=== PATIENT | male | born 1940 | race Caucasian/White ===

== ENCOUNTER 2017-07-26 19:54 | Inpatient (IN) | payer MEDICARE, MEDICAID ==
[2017-07-26 21:10] LABS: ALB/GLOB RATIO 0.8 (1.0-1.8); ALBUMIN 2.8 gm/dL (4.2-5.5); ALKALINE PHOSPHATASE 96 U/L (34-104); ANION GAP 11.3 (7.0-16.0); BILIRUBIN,TOTAL 0.4 mg/dL (0.3-1.0); BUN - UREA NITROGEN 36 mg/dL (7-25); CALCIUM SERUM 8.9 mg/dL (8.6-10.3); CARBON DIOXIDE 26.8 mEq/L (21.0-31.0); CHLORIDE 109 mEq/L (98-107); CREATININE - SERUM 1.6 mg/dL (0.7-1.3); GLUCOSE 96 mg/dL (70-105); POTASSIUM SERUM 5.1 mEq/L (3.5-5.1); SGOT 14 U/L (13-39); SGPT/ALT 9 U/L (7-52); SODIUM SERUM 142 mEq/L (136-145); TOTAL PROTEIN,SERUM 6.5 gm/dL (6.0-8.3)
--- NOTE | 2017-07-26 21:16 | ED Physician Chart ---
ED Chief Complaint/HPI - Patient Information Date Seen:: 07/26/17 Time Seen:: 19:40 Chief Complaint:: leg swelling and discoloration History of Present Illness:: 77 YR OLD MALE FROM ASSISTED WITH LEG BURNING PAINS AND SWELLING DISCOLORATIONS PT HEAVY SET AND ESSENTIALLY IMOBILE DENIES CP ,SOB Allergies:: Allergies Allergy/AdvReac Type Severity Reaction Status Date / Time celecoxib Allergy Verified 07/26/17 20:22 erythromycin base Allergy Verified 07/26/17 20:22 furosemide [From Lasix] Allergy Verified 07/26/17 20:22 naproxen [From Naprosyn] Allergy Verified 07/26/17 20:22 prednisone Allergy Verified 07/26/17 20:22 Sulfa (Sulfonamide Allergy Verified 07/26/17 20:22 Antibiotics) sulfacetamide Allergy Verified 07/26/17 20:22 Vitals:: Vital Signs - 8 hr 07/26/17 20:00 Temp 98.4 F HR 92 RR 18 BP 146/88 O2 Sat % 98 ED Review of Systems - Review of Systems General/Constitutional: No chills Skin: No skin lesions Head: No headache Eyes: No loss of vision ENT: No earache Neck: No neck pain Psychiatric: No homicidal ideation, No auditory hallucination, Visual hallucination Hematopoietic: No lymphadenopathy Neurological: No headache, No dizziness Family Medical History - Family Member Mother History Unknown: Yes Ethnicity: ED Labs/Radiology/EKG Results - Lab Results Results: Laboratory Tests 07/26/17 20:45 WBC 10.0 RBC 5.09 Hgb 13.0 Hct 39.3 L MCV 77.2 L MCH 25.6 L MCHC Differential 33.1 RDW 13.1 Plt Count 257 MPV 7.0 Neutrophils % 57.2 Lymphocytes % 19.6 L Monocytes % 6.8 Eosinophils % 16.0 H Basophils % 0.4 ED Assessment Prep/Irrigation:: ordered venous duplex ultraound the leg markedky swooleen ultraound could charo dosec to probe stickinh to the pts skin ED Septic Shock - . Is Septic Shock (SBP<90, OR Lactate>4 mmol\L) present?: No - <6hrs of presentation: Vital Signs: Vital Signs - 8 hr 07/26/17 20:00 Temp 98.4 F HR 92 RR 18 BP 146/88 O2 Sat % 98
[2017-07-26 21:53] LABS: EOSINOPHILE ABSOLUTE 0.1 Th/cmm (0.1-0.4)
[2017-07-26 21:54] LABS: URINE MICROSCOPIC INDICATED? YES; URINE SOURCE RANDOM
[2017-07-26 21:55] LABS: MONOCYTE ABSOLUTE 1.1 Th/cmm (0.3-1.0)
[2017-07-26 21:55] LABS: URINE BILIRUBIN NEGATIVE (NEGATIVE); URINE BLOOD LARGE (NEGATIVE); URINE GLUCOSE (UA) NEGATIVE (NEGATIVE); URINE KETONE NEGATIVE (NEGATIVE); URINE LEUKOCYTE ESTERASE SMALL (NEGATIVE); URINE NITRATE NEGATIVE (NEGATIVE); URINE PROTEIN 100 mg/dL (NEGATIVE); URINE UROBILINOGEN 0.2 E.U./dL (0.2 - 1.0)
[2017-07-26 21:58] LABS: LYMPHOCYTE ABSOLUTE 2.6 Th/cmm (1.5-3.0); NEUTROPHILE ABSOLUTE 8.7 Th/cmm (1.8-8.0)
[2017-07-26 22:00] LABS: HEMATOCRIT 35.5 % (41.0-60); HEMOGLOBIN 11.7 gm/dL (12-16); MEAN CELL VOLUME 89.2 fl (80-99); MEAN CORPUSCULAR HEMOGLOBIN 29.4 pg (27.0-31.0); RED BLOOD COUNT 3.99 Mil/cmm (3.80-5.80)
[2017-07-26 22:01] LABS: % BASOPHILS 0.3 % (0.0-2.0); % EOSINOPHILS 0.8 % (0.0-5.0); % LYMPHOCYTES 20.7 % (20.0-50.0); % MONOCYTES 8.8 % (2.0-10.0); % NEUTROPHILS 69.4 % (40.0-80.0); MEAN PLATELET VOLUME 6.7 fl; PLATELET COUNT 453 Th/cmm (150-400); RED CELL DISTRIBUTION WIDTH 16.7 % (11.5-20.0); WHITE BLOOD COUNT 11.9 Th/cmm (4.8-10.8)
[2017-07-26 22:08] LABS: URINE BACTERIA FEW /hpf (NONE SEEN); URINE CLARITY CLEAR (CLEAR); URINE COLOR YELLOW; URINE EPITHELIAL CELLS NONE SEEN /lpf (FEW); URINE RBC 25-50 /hpf (0-5)
[2017-07-26] MEDS ORDERED: Sodium Chloride 0.9% 1,000 ML IV ONE (22:55)
[2017-07-26] MEDS ORDERED: cefTRIAXone 1 GM in Sodium Chloride 0.9% 50 ML IV ONE (23:00)
[2017-07-27 02:13] VITALS: BP 127/81
[2017-07-27 06:21] LABS: % BASOPHILS 0.6 % (0.0-2.0); % EOSINOPHILS 16.7 % (0.0-5.0); % LYMPHOCYTES 22.7 % (20.0-50.0); % MONOCYTES 7.6 % (2.0-10.0); % NEUTROPHILS 52.4 % (40.0-80.0); BASOPHILE ABSOLUTE 0.1 Th/cumm (0-0.2); EOSINOPHILE ABSOLUTE 1.5 Th/cmm (0.1-0.4); HEMATOCRIT 34.2 % (41.0-60); HEMOGLOBIN 11.4 gm/dL (12-16); MEAN CORPUSCULAR HEMOGLOBIN 25.6 pg (27.0-31.0); MEAN CORPUSCULAR HGB CONC 33.2 pg (28.0-36.0); MEAN PLATELET VOLUME 7.3 fl; MONOCYTE ABSOLUTE 0.7 Th/cmm (0.3-1.0); NEUTROPHILE ABSOLUTE 4.5 Th/cmm (1.8-8.0); RED BLOOD COUNT 4.44 Mil/cmm (3.80-5.80); RED CELL DISTRIBUTION WIDTH 12.9 % (11.5-20.0); WHITE BLOOD COUNT 8.8 Th/cmm (4.8-10.8)
[2017-07-27 06:28] LABS: PLATELET COUNT 222 Th/cmm (150-400)
[2017-07-27 06:42] LABS: ALB/GLOB RATIO 0.7 (1.0-1.8); ALBUMIN 2.2 gm/dL (4.2-5.5); ALKALINE PHOSPHATASE 75 U/L (34-104); ANION GAP 8.5 (7.0-16.0); BILIRUBIN,TOTAL 0.4 mg/dL (0.3-1.0); BUN - UREA NITROGEN 36 mg/dL (7-25); CARBON DIOXIDE 24.7 mEq/L (21.0-31.0); CHLORIDE 113 mEq/L (98-107); CREATININE - SERUM 1.6 mg/dL (0.7-1.3); GLUCOSE 92 mg/dL (70-105); POTASSIUM SERUM 4.2 mEq/L (3.5-5.1); SGOT 10 U/L (13-39); SGPT/ALT 8 U/L (7-52); SODIUM SERUM 142 mEq/L (136-145); TOTAL PROTEIN,SERUM 5.2 gm/dL (6.0-8.3)
[2017-07-27] MEDS: INSULIN ASPART SLIDING SCALE 100 UNITS/ML UNIT SUBQ SCH ×4 (06:59→21:11)
[2017-07-27] MEDS ORDERED: INSULIN HUMAN REGULAR 100 UNITS/ML UNIT SUBQ SCH (07:30)
--- NOTE | 2017-07-27 08:08 | Diagnostic Imaging Report ---
Exam: Portable chest x-ray Time: 2100 History: Shortness of breath Allowing for portable technique the heart size is normal. No focal pulmonary parenchymal processes. No hilar or mediastinal abnormalities. Mild congestion cannot be excluded, the the patient is significantly rotated. Impression: Mild congestive heart failure changes bilaterally.
[2017-07-27] MEDS ORDERED: Albuterol Nebulizer 2.5mg/3mL HHN PRN (22:13)
[2017-07-27] MEDS ORDERED: Hydrocodone/APAP 10 mg/325 mg Tab PO PRN (22:14)
[2017-07-27] MEDS ORDERED: Morphine Sulfate 4 mg/mL 1mL Syr IV PRN (22:15)
[2017-07-27] MEDS: cefTRIAXone 1 GM in Sodium Chloride 0.9% 50 ML IV SCH (22:20)
--- NOTE | 2017-07-27 23:08 | History & Physical ---
ADMIT DATE: 07/27/2017 CHIEF COMPLAINT: Right lower extremity pain, severely. HISTORY OF PRESENT ILLNESS: The patient is a very nice 77-year-old Amharic speaking male admitted from the Emergency Room to telemetry floor of [facility] due to multiple complicated medical conditions. The patient complained bilateral lower extremity pain for the past few days with progressive worsening, especially the right lower extremity. The patient does have a history of stasis dermatitis. he also has acquired cellulitis. He also has history of chronic DVT in the right lower extremity and mild congestive heart failure as well. The pain was described as 7/10 in the snf in the ER; however, this pain has improved. In the Emergency Room, the patient's white count elevated to 11,900. BUN is 36, creatinine 1.6, consistent with his diabetic nephropathy. The patient's blood sugar was mildly elevated. UA revealed positive leukocyte esterase, large blood. Chest x-ray revealed findings consistent with congestive heart failure. The patient does complain of some shortness of breath and has COPD, chronically as well. 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 PAST SURGICAL HISTORY: Cholecystectomy. MEDICATIONS: See medication reconciliation list. ALLERGIES: The patient has multiple allergies, listed above, CELEBREX, ERYTHROMYCIN, LASIX, NAPROXEN, PREDNISONE, etc. However, he did use some other medication before without observable side effect. REVIEW OF SYSTEMS: As per HPI. PHYSICAL EXAMINATION: GENERAL: Well-developed, obese male in no acute distress. SKIN: There is stasis dermatitis and cellulitis in bilateral lower extremity, more so on the right side. VITAL SIGNS: Blood pressure is 117/70, pulse 83, respirations 18 and temperature afebrile. HEENT: Normocephalic, atraumatic. Pupils equal, round, react to light and accommodation. CHEST: Symmetrical. LUNGS: Few wheezing appreciated bilaterally. CARDIAC: Normal sinus rhythm. S1, S2. ABDOMEN: Benign, soft, nontender. EXTREMITIES: There is 2+ edema bilaterally. PSYCHIATRIC: Linear and logical. NEUROLOGICAL: Unremarkable. LABORATORY DATA: Reviewed, showed WBC 11,900. BUN 36, creatinine 1.6, glucose 143. UA reveals positive leukocyte esterase. ASSESSMENT AND PLAN: 1. Severe pain of bilateral lower extremity, especially right lower extremity: This is multifactorial. We will manage accordingly. 2. Bilateral lower extremity cellulitis with right-sided worse than left: Blood culture ordered. Empiric antibiotic with Rocephin started, which will be adjusted accordingly. 3. History of deep venous thrombosis: The patient is on Coumadin. We will adjust the dose and monitor INR. 4. Leukocytosis, multifactorial. 5. Diabetic nephropathy: Try to avoid nephrotoxic medication if possible. 6. Congestive heart failure with ejection fraction between 35-40% due to coronary artery disease, status post [place] a long time ago. 7. Short of breath: Multifactorial due to combination of COPD and congestive heart failure. 8. Chronic obstructive pulmonary disease: RT protocol with albuterol, Atrovent every 4 hours p.r.n. ordered. 9. Diabetes, sliding scale insulin low dose. 10. Status post cerebrovascular accident 3 years ago with right hemiplegia as a result. 11. Decubitus ulcer: Continue wound care. JOB# [id number]
[2017-07-28] MEDS: INSULIN ASPART SLIDING SCALE 100 UNITS/ML UNIT SUBQ SCH ×4 (08:12→21:32)
--- NOTE | 2017-07-28 11:57 | Consultation ---
Consult Note - Consult Note Service Date: 07/28/17 Referring Physician: Scott Guzman Consult Note: PHYSICIAN Consultation Note: Date of Admission: 07/27/17 Purpose of Consultation: Recurrent Cellulitis of both legs. Chief Complaint: Patient JANIE VIVAR was admitted to [facility] with BLE CELLULITIS. History of Present Illness:Patient is 77 year female with past medical history of chronic DVT, diabetes mellitus type 2, hypertension, status post CVA 30 years ago with a right-sided hemiplegia, recurrent UTIs, decubitus ulcer, status dermatitis, diabetic nephropathy, brought to the [facility] for worsening off for right lower extremity redness. On initial evaluation, his temperature was 98.4F and WBC count was 11,900. Rocephin was started. ID consult was called for further antibiotic management. Past Medical History: chronic DVT, diabetes mellitus type 2, hypertension, status post CVA 30 years ago with a right-sided hemiplegia, recurrent UTIs, decubitus ulcer, status dermatitis, diabetic nephropathy Diagnoses ELEVATED WHITE BLOOD CELL COUNT, UNSPECIFIED (07/27/17) TYPE 2 DIABETES MELLITUS WITH DIABETIC NEPHROPATHY (07/27/17) ATHSCL HEART DISEASE OF [place] CORONARY ARTERY W/O ANG PCTRS (07/27/17) OLD MYOCARDIAL INFARCTION (07/27/17) HEART FAILURE, UNSPECIFIED (07/27/17) HEMIPLGA FOLLOWING CEREBRAL INFRC AFF RIGHT DOMINANT SIDE (07/27/17) CHRONIC OBSTRUCTIVE PULMONARY DISEASE, UNSPECIFIED (07/27/17) CELLULITIS OF RIGHT LOWER LIMB (07/27/17) CELLULITIS OF LEFT LOWER LIMB (07/27/17) CELLULITIS, UNSPECIFIED (07/27/17) PRESSURE ULCER OF UNSPECIFIED SITE, UNSPECIFIED STAGE (07/27/17) PERSONAL HISTORY OF OTHER VENOUS THROMBOSIS AND EMBOLISM (07/27/17) Allergies Allergy/AdvReac Type Severity Reaction Status Date / Time celecoxib Allergy Verified 07/26/17 20:22 erythromycin base Allergy Verified 07/26/17 20:22 furosemide [From Lasix] Allergy Verified 07/26/17 20:22 naproxen [From Naprosyn] Allergy Verified 07/26/17 20:22 prednisone Allergy Verified 07/26/17 20:22 Sulfa (Sulfonamide Allergy Verified 07/26/17 20:22 Antibiotics) sulfacetamide Allergy Verified 07/26/17 20:22 Vital Signs Temp 98 F 07/28/17 08:00 Pulse 79 07/28/17 08:00 Resp 18 07/28/17 08:00 BP 141/68 07/28/17 08:00 Pulse Ox 98 07/28/17 08:00 Intake & Output 07/27/17 07/28/17 07/28/17 18:59 06:59 18:59 Weight (lbs) 159.665 kg Other: Stool Characteristics Soft Soft Weight Source Bedscale Laboratory Results - last 24 hr 07/27/17 07/27/17 07/27/17 12:30 16:26 20:56 POC Glucose 100 123 H 143 H 07/28/17 07:08 POC Glucose 81 Home Medication Medication Instructions Recorded Type Acetaminophen [Tylenol] 650 mg PO Q4HR PRN 07/26/17 History Albuterol/Ipratropium Neb [Duoneb 3 ml HHN Q4HR PRN 07/26/17 History Neb] Amino Acids/Protein Hydrolys 15 ml PO DAILY 07/26/17 History [Pro-Stat Sugar Free 887 ml] Ascorbic Acid [Vitamin C] 500 mg PO DAILY 07/26/17 History Atorvastatin Calcium [Lipitor] 20 mg PO HS 07/26/17 History Bisacodyl [Dulcolax] 10 mg RC DAILY PRN 07/26/17 History Cholecalciferol (Vitamin D3) 2,000 unit PO DAILY 07/26/17 History [Vitamin D3] Clonidine HCl [Catapres] 0.1 mg PO Q6HR PRN 07/26/17 History Cranberry Fruit Concentrate 450 mg PO DAILY 07/26/17 History [Cranberry] Docusate Sodium [Colace] 100 mg PO BID 07/26/17 History Fleet Enema [Fleet Enema] 135 ml RC Q72HR PRN 07/26/17 History Fluticasone/Salmeterol [Advair 1 each IH BID 07/26/17 History 500-50 Diskus] Hydralazine [Apresoline*] 25 mg PO Q8HR 07/26/17 History Insulin Human Regular [NovoLIN R] See Protocol SUBQ BID 07/26/17 History Lactulose 15 gm PO BID PRN 07/26/17 History Magnesium Hydroxide [Milk of 30 ml PO DAILY PRN 07/26/17 History Magnesia] Metoprolol Tartrate [Lopressor] 25 mg PO BID 07/26/17 History Sennosides A and B [Senna] 2 tab PO HS 07/26/17 History Warfarin Sodium [Coumadin] 5 mg PO HS 07/26/17 History Warfarin Sodium [Coumadin] 6 mg PO HS 07/26/17 History Current Medications Generic Name Dose Route Start Last Admin Trade Name Freq PRN Reason Stop Dose Admin Acetaminophen/Hydrocodone Bitart 1 tab 07/27/17 22:14 [place] 10 Mg/325 Mg PO 09/25/17 22:13 Q4H PRN Pain (Moderate) Albuterol Sulfate 2.5 mg 07/27/17 22:13 Albuterol 2.5mg/3ml Neb Ud HHN 09/25/17 22:12 Q4H PRN Shortness of Breath or Wheeze Ceftriaxone Sodium 1 gm/ 50 mls @ 100 mls/hr 07/27/17 23:00 07/27/17 22:20 Sodium Chloride IV 09/25/17 22:59 100 mls/hr Q24HR RADHA Administration Insulin Aspart 0 units 07/27/17 07:30 07/28/17 08:12 Novolog Insulin Sliding Scale SUBQ 09/25/17 07:29 Not Given ACHS RADHA Protocol Morphine Sulfate 4 mg 07/27/17 22:15 Morphine IV 09/25/17 22:14 Q4H PRN Pain (Severe) Review of Systems: A 12 point ROS was reviewed with the pertinent positive and negatives noted in the HPI. Social History Smoking Status Unknown if ever smoked Lives at nursing facility. Family Medical History Not available. Physical Exam: General: Obese, not in acute distress. HEENT: Head: Normocytic, atraumatic oral cavity: Moist, pink tongue is moist. Eyes: No pallor. No icterus. Pupil PERRLA. EOMI. Neck: Supple, no JVD. No use of accessory muscles. Cardio: S1 and S2 within normal limits regular rhythm. Respiratory: CTAP Abdominal: Soft, nontender, nondistended bowel sounds present Genital/Urinary: Deferred Extremities: No cyanosis no clubbing patient avoid dry skin of both lower extremities discoloration and flaking of the skin. There is some ulceration also. Neurological: Alert, awake,. Oriented 3. Right-sided hemiplegia. Assessment: 1. Cellulitis of both lower extremities. 2. Severe dry skin dermatitis. And venous stasis. Associated fungal dermatitis 3. Obesity. 4. Chronic DVT. 5. Diabetes mellitus type 2. 6. hypertension. 7. 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 8. Recurrent UTIs. 9. Decubitus ulcer. 10. Status dermatitis. 11. Diabetic nephropathy Plan: Continue Rocephin. Apply Lac-Hydrin. Start Diflucan. Wound care. Thank you, Dr. Guzman for involving me in taking care of this patient. Signed, Miguel Nolan M.D. [id number]
[2017-07-28] MEDS: Ammonium Lactate Cream 140 gm Tube TP SCH (17:48)
[2017-07-28] MEDS: cefTRIAXone 1 GM in Sodium Chloride 0.9% 50 ML IV SCH (22:33)
--- NOTE | 2017-07-29 04:15 | Progress Notes ---
DATE: 07/28/2017 SUBJECTIVE: Acute right lower extremity pain, weakness, and some short of breath. OBJECTIVE: VITAL SIGNS: Basically stable. HEENT: Normocephalic and atraumatic. Pupils equal, round, and react to light and accommodation. CHEST: Symmetrical. LUNGS: Clear to auscultation. CARDIOVASCULAR: Normal sinus rhythm. S1 and S2. ABDOMEN: Benign, soft, and nontender. EXTREMITIES: There is cellulitis and stasis dermatitis involving bilateral lower extremities, especially on the right side with multiple decubitus ulcers as well. NEUROLOGIC: Unremarkable. LABORATORY TESTING: Reviewed as seen from the computer. ASSESSMENT AND PLAN: 1. Decubitus ulcer in multiple areas: Wound care and repositioning every ____ hours. 2. Short of breath: This is probably due to the combination of chronic obstructive pulmonary disease, congestive heart failure, and morbid obesity. RT protocol is ordered. 3. Chronic obstructive pulmonary disease: RT protocol. 4. Right lower extremity cellulitis: Continue antibiotics. Blood culture pending. We will adjust antibiotic accordingly. 5. Diabetes, sliding scale insulin low dose. 6. Status post major cerebrovascular accident over 32 years ago with right hemiplegia. 7. Diabetic nephropathy: Avoid nephrotoxic medication possible. JOB# [id number]
[2017-07-29] MEDS: INSULIN ASPART SLIDING SCALE 100 UNITS/ML UNIT SUBQ SCH ×3 (06:29→21:52)
[2017-07-29] MEDS: Ammonium Lactate Cream 140 gm Tube TP SCH (08:40)
--- NOTE | 2017-07-29 11:03 | Infectious Disease Prog Note ---
Infectious Disease Subjective - Review of Systems Service Date: 07/29/17 Subjective: There is no new change, no fever. Infectious Disease Objective - Results Result Diagrams: 07/27/17 05:50 07/27/17 05:50 Recent Labs: Laboratory Last Values WBC 8.8 Th/cmm (4.8-10.8) 07/27/17 05:50 RBC 4.44 Mil/cmm (3.80-5.80) 07/27/17 05:50 Hgb 11.4 gm/dL (12-16) L 07/27/17 05:50 Hct 34.2 % (41.0-60) L 07/27/17 05:50 MCV 77.0 fl (80-99) L 07/27/17 05:50 MCH 25.6 pg (27.0-31.0) L 07/27/17 05:50 MCHC Differential 33.2 pg (28.0-36.0) 07/27/17 05:50 RDW 12.9 % (11.5-20.0) 07/27/17 05:50 Plt Count 222 Th/cmm (150-400) D 07/27/17 05:50 MPV 7.3 fl 07/27/17 05:50 Neutrophils % 52.4 % (40.0-80.0) 07/27/17 05:50 Lymphocytes % 22.7 % (20.0-50.0) 07/27/17 05:50 Monocytes % 7.6 % (2.0-10.0) 07/27/17 05:50 Eosinophils % 16.7 % (0.0-5.0) H 07/27/17 05:50 Basophils % 0.6 % (0.0-2.0) 07/27/17 05:50 Sodium 142 mEq/L (136-145) 07/27/17 05:50 Potassium 4.2 mEq/L (3.5-5.1) 07/27/17 05:50 Chloride 113 mEq/L (98-107) H 07/27/17 05:50 Carbon Dioxide 24.7 mEq/L (21.0-31.0) 07/27/17 05:50 Anion Gap 8.5 (7.0-16.0) 07/27/17 05:50 BUN 36 mg/dL (7-25) H 07/27/17 05:50 Creatinine 1.6 mg/dL (0.7-1.3) H 07/27/17 05:50 Est GFR ( Amer) TNP 07/27/17 05:50 Est GFR (Non-Af Amer) TNP 07/27/17 05:50 BUN/Creatinine Ratio 22.5 07/27/17 05:50 Glucose 92 mg/dL (70-105) 07/27/17 05:50 POC Glucose 82 MG/DL (70 - 105) 07/29/17 05:44 Whole Bld Lactic Acid 0.71 mmol/L (0.60-1.99) 07/26/17 23:00 Calcium 8.0 mg/dL (8.6-10.3) L 07/27/17 05:50 Total Bilirubin 0.4 mg/dL (0.3-1.0) 07/27/17 05:50 AST 10 U/L (13-39) L 07/27/17 05:50 ALT 8 U/L (7-52) 07/27/17 05:50 Alkaline Phosphatase 75 U/L (34-104) 07/27/17 05:50 Troponin I 0.01 ng/mL (0.01-0.05) 07/26/17 20:45 B-Natriuretic Peptide 452.0 pg/mL (5.0-100.0) H 07/26/17 20:45 Total Protein 5.2 gm/dL (6.0-8.3) L 07/27/17 05:50 Albumin 2.2 gm/dL (4.2-5.5) L 07/27/17 05:50 Globulin 3.0 gm/dL 07/27/17 05:50 Albumin/Globulin Ratio 0.7 (1.0-1.8) L 07/27/17 05:50 Urine Source RANDOM 07/26/17 21:05 Urine Color YELLOW 07/26/17 21:05 Urine Clarity CLEAR (CLEAR) 07/26/17 21:05 Urine pH 6.0 (4.6 - 8.0) 07/26/17 21:05 Ur Specific [place] 1.015 (1.005-1.030) 07/26/17 21:05 Urine Protein 100 mg/dL (NEGATIVE) H 07/26/17 21:05 Urine Glucose (UA) NEGATIVE mg/dL (NEGATIVE) 07/26/17 21:05 Urine Ketones NEGATIVE mg/dL (NEGATIVE) 07/26/17 21:05 Urine Blood LARGE (NEGATIVE) H 07/26/17 21:05 Urine Nitrate NEGATIVE (NEGATIVE) 07/26/17 21:05 Urine Bilirubin NEGATIVE (NEGATIVE) 07/26/17 21:05 Urine Urobilinogen 0.2 E.U./dL (0.2 - 1.0) 07/26/17 21:05 Ur Leukocyte Esterase SMALL (NEGATIVE) H 07/26/17 21:05 Urine RBC 25-50 /hpf (0-5) H 07/26/17 21:05 Urine WBC 6-10 /hpf (0-5) 07/26/17 21:05 Ur Epithelial Cells NONE SEEN /lpf (FEW) 07/26/17 21:05 Urine Bacteria FEW /hpf (NONE SEEN) 07/26/17 21:05 - Physical Exam Vitals and I&O: Vital Signs Temp 98.2 F 07/29/17 04:00 Pulse 73 07/29/17 08:14 Resp 18 07/29/17 08:14 BP 141/70 07/29/17 08:14 Pulse Ox 96 07/29/17 08:14 Intake & Output 07/28/17 07/29/17 07/29/17 18:59 06:59 18:59 Intake Total 650 150 Balance 650 150 Weight (lbs) 159.665 kg 159.665 kg Intake: Oral 650 150 Other: # Voids 4 3 # Bowel Movements 0 0 Stool Characteristics Soft Soft Weight Source Bedscale Bedscale Active Medications: Current Medications Acetaminophen/Hydrocodone Bitart ([place] 10 Mg/325 Mg) 1 tab PO Q4H PRN PRN Reason: Pain (Moderate) Stop: 09/25/17 22:13 Albuterol Sulfate (Albuterol 2.5mg/3ml Neb Ud) 2.5 mg HHN Q4H PRN PRN Reason: Shortness of Breath or Wheeze Stop: 09/25/17 22:12 Fluconazole (Diflucan) 100 mg PO DAILY RADHA Stop: 09/26/17 14:59 Last Admin: 07/29/17 08:44 Dose: 100 mg Ceftriaxone Sodium 1 gm/ (Sodium Chloride) 50 mls @ 100 mls/hr IV Q24HR [facility] Stop: 09/25/17 22:59 Last Admin: 07/28/17 22:33 Dose: 100 mls/hr Insulin Aspart (Novolog Insulin Sliding Scale) 0 units SUBQ ACHS RADHA PRN Reason: Protocol Stop: 09/25/17 07:29 Last Admin: 07/29/17 06:29 Dose: Not Given Lactic Acid (Lac-Hydrin Cream) 1 appl TP BID [facility] Stop: 09/26/17 16:59 Last Admin: 07/29/17 08:40 Dose: 1 appl Morphine Sulfate (Morphine) 4 mg IV Q4H PRN PRN Reason: Pain (Severe) Stop: 09/25/17 22:14 General: no acute distress, well developed, well nourished, other (obese) HEENT: atraumatic, normocephalic, PERRLA, EOMI, moist mucous membrane Neck: supple, no thyromegaly Cardiovascular: S1S2, regular Lungs: clear to auscultation bilaterally, clear to percussion Abdomen: soft, bowel sounds, obese, no tender, no distended, no mass Extremities: other (b/l leg swelling with very dry skin and scalling of the skin ,) Neurological: awake, alert, oriented Infectious Disease Assmt/Plan - Assessment Assessment: 1. Cellulitis of both lower extremities. 2. Severe dry skin dermatitis. And venous stasis. Associated fungal dermatitis 3. Obesity. 4. Chronic DVT. 5. Diabetes mellitus type 2. 6. hypertension. 7. 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 8. Recurrent UTIs. 9. Decubitus ulcer. 10. Status dermatitis. 11. Diabetic nephropathy - Plan Plan: Continue the same treatment. Nutritional Asmnt/Malnutr-PDOC - Dietary Evaluation Malnutrition Findings (Please click <Entered> for more info): Nutritional Asmnt/Malnutrition Start: 07/27/17 14: 58 Text: Status: Complete Freq: Document 07/27/17 14:58 NICOLE (Rec: 07/27/17 15:09 MARIE [email or web address]) Nutritional Asmnt/Malnutrition Patient General Information Nutritional Screening High Risk Consult Diagnosis BLE cellulitis Pertinent Medical Hx/Surgical Hx not indicated Subjective Information Consult received for Dm, cellulitis and wound. Pt seen sitting up in bed at time of visit, awake and alert. Pt reported appetitie good. Current Diet Order/ Nutrition Support 1800 ADA cardiac renal Pertinent Medications novolog Pertinent Labs 07/27 Cl 113, BUN 36, Cr 1.6 Nutritional Hx/Data Height 1.78 m Height (Calculated Centimeters) 177.8 Current Weight (lbs) 159.665 kg Weight (Calculated Kilograms) 159.7 Weight (Calculated Grams) 729786.5 [place] Body Weight 166 Body Mass Index (BMI) 50.5 Recent Weight Change No Weight Status Morbidly Obese GI Symptoms GI Symptoms None Last BM none Difficult in: None Usual diet at home diabetic and renal diet per pt Skin Integrity/Comment: rash to coccyx, right hand, abdomen, back skin tear to left leg, right leg reddened to sacrotum pressure area to buttocks Estimated Nutritional Goals BEE in Kcals: Adj wt of IBW Calories/Kcals/Kg 20-25 Kcals Calculated [id number] Protein: Adj wt of IBW Protein g/k Protein Calculated 96 Fluid: ml 1920-2400ml (1ml/kcal) Nutritional Problem 1. Problem Problem altered nutrition related labs Etiology renal dysfunction Signs/Symptoms: BUN 36, Cr 1.6 Malnutrition Alert Protein-Calorie Malnutrition N/A Is there a minimum of two criteria No selected? Query Text:Check all the applicable criteria. A minimum of two criteria are recommended for diagnosis of either severe or non-severe malnutrition. Intervention/Recommendation Comments 1. Continue with current diet as ordered. Encouraged veggetable intake. Pt verbalized understood. 2. Monitor PO intake, wt, labs and skin integrity 3. F/U as moderate risk in 3-5 days, 07/30-07/31 Expected Outcomes/Goals Expected Outcomes/Goals 1. PO intake to meet at least 75% of nutritional needs. 2. Wt stability, skin to remain intact, labs to approach WNL.
[2017-07-29] MEDS: cefTRIAXone 1 GM in Sodium Chloride 0.9% 50 ML IV SCH (23:07)
--- NOTE | 2017-07-30 00:21 | Progress Notes ---
DATE: 07/29/2017 SUBJECTIVELY: The patient complains of pain in the right lower extremity. OBJECTIVE: VITAL SIGNS: Basically stable. HEENT: Normocephalic, atraumatic. Pupils equal, round, react to light and accommodation. CHEST: Symmetrical. LUNGS: Few wheezing appreciated with rhonchi at lung base. CARDIOVASCULAR: Normal sinus rhythm. S1, S2. ABDOMEN: Benign, soft, nontender. EXTREMITIES: There is cellulitis in bilateral lower extremities, especially on the right lower extremity and stasis dermatitis and multiple decubitus ulcers. ASSESSMENT AND PLAN: 1. Acute cellulitis involving bilateral lower extremity, especially on the right side: IVPB antibiotics and blood culture ordered. Antibiotics will be adjusted accordingly. 2. Multiple decubitus ulcers: Continue wound care and every 12 hours. 3. Short of breath improving: Continue RT protocol. This is due to the combination of chronic obstructive pulmonary disease and congestive heart failure and morbid obesity. 4. Chronic obstructive pulmonary disease: RT protocol. 5. Diabetes: Sliding scale insulin low dose. 6. Diabetic nephropathy: Try to avoid nephrotoxic medications if possible. 7. History of coronary artery disease, status post myocardial infarction. 8. Status post major cerebrovascular accident over 33 years ago with right hemiplegia. 8. Deep venous thrombosis of the right lower extremity: Continue anticoagulation. JOB# [id number]
[2017-07-30] MEDS: INSULIN ASPART SLIDING SCALE 100 UNITS/ML UNIT SUBQ SCH ×2 (06:44→11:59)
[2017-07-30 06:56] LABS: % BASOPHILS 0.9 % (0.0-2.0); % EOSINOPHILS 19.7 % (0.0-5.0); % LYMPHOCYTES 21.4 % (20.0-50.0); % MONOCYTES 7.5 % (2.0-10.0); % NEUTROPHILS 50.5 % (40.0-80.0); BASOPHILE ABSOLUTE 0.1 Th/cumm (0-0.2); EOSINOPHILE ABSOLUTE 1.6 Th/cmm (0.1-0.4); HEMATOCRIT 36.4 % (41.0-60); HEMOGLOBIN 12.1 gm/dL (12-16); LYMPHOCYTE ABSOLUTE 1.8 Th/cmm (1.5-3.0); MEAN CELL VOLUME 77.8 fl (80-99); MEAN CORPUSCULAR HEMOGLOBIN 25.8 pg (27.0-31.0); MEAN CORPUSCULAR HGB CONC 33.2 pg (28.0-36.0); MEAN PLATELET VOLUME 7.5 fl; MONOCYTE ABSOLUTE 0.6 Th/cmm (0.3-1.0); NEUTROPHILE ABSOLUTE 4.2 Th/cmm (1.8-8.0); PLATELET COUNT 205 Th/cmm (150-400); RED BLOOD COUNT 4.69 Mil/cmm (3.80-5.80); RED CELL DISTRIBUTION WIDTH 13.1 % (11.5-20.0); WHITE BLOOD COUNT 8.3 Th/cmm (4.8-10.8)
[2017-07-30] MEDS: Ammonium Lactate Cream 140 gm Tube TP SCH ×2 (08:24→17:36)
--- NOTE | 2017-07-30 10:38 | Infectious Disease Prog Note ---
Infectious Disease Subjective - Review of Systems Service Date: 07/30/17 Subjective: There is no new change, no fever. Infectious Disease Objective - Results Result Diagrams: 07/30/17 06:10 07/27/17 05:50 Recent Labs: Laboratory Last Values WBC 8.3 Th/cmm (4.8-10.8) 07/30/17 06:10 RBC 4.69 Mil/cmm (3.80-5.80) 07/30/17 06:10 Hgb 12.1 gm/dL (12-16) 07/30/17 06:10 Hct 36.4 % (41.0-60) L 07/30/17 06:10 MCV 77.8 fl (80-99) L 07/30/17 06:10 MCH 25.8 pg (27.0-31.0) L 07/30/17 06:10 MCHC Differential 33.2 pg (28.0-36.0) 07/30/17 06:10 RDW 13.1 % (11.5-20.0) 07/30/17 06:10 Plt Count 205 Th/cmm (150-400) 07/30/17 06:10 MPV 7.5 fl 07/30/17 06:10 Neutrophils % 50.5 % (40.0-80.0) 07/30/17 06:10 Lymphocytes % 21.4 % (20.0-50.0) 07/30/17 06:10 Monocytes % 7.5 % (2.0-10.0) 07/30/17 06:10 Eosinophils % 19.7 % (0.0-5.0) H 07/30/17 06:10 Basophils % 0.9 % (0.0-2.0) 07/30/17 06:10 Sodium 142 mEq/L (136-145) 07/27/17 05:50 Potassium 4.2 mEq/L (3.5-5.1) 07/27/17 05:50 Chloride 113 mEq/L (98-107) H 07/27/17 05:50 Carbon Dioxide 24.7 mEq/L (21.0-31.0) 07/27/17 05:50 Anion Gap 8.5 (7.0-16.0) 07/27/17 05:50 BUN 36 mg/dL (7-25) H 07/27/17 05:50 Creatinine 1.6 mg/dL (0.7-1.3) H 07/27/17 05:50 Est GFR ( Amer) TNP 07/27/17 05:50 Est GFR (Non-Af Amer) TNP 07/27/17 05:50 BUN/Creatinine Ratio 22.5 07/27/17 05:50 Glucose 92 mg/dL (70-105) 07/27/17 05:50 POC Glucose 80 MG/DL (70 - 105) 07/30/17 06:30 Whole Bld Lactic Acid 0.71 mmol/L (0.60-1.99) 07/26/17 23:00 Calcium 8.0 mg/dL (8.6-10.3) L 07/27/17 05:50 Total Bilirubin 0.4 mg/dL (0.3-1.0) 07/27/17 05:50 AST 10 U/L (13-39) L 07/27/17 05:50 ALT 8 U/L (7-52) 07/27/17 05:50 Alkaline Phosphatase 75 U/L (34-104) 07/27/17 05:50 Troponin I 0.01 ng/mL (0.01-0.05) 07/26/17 20:45 B-Natriuretic Peptide 296.0 pg/mL (5.0-100.0) H 07/30/17 06:10 Total Protein 5.2 gm/dL (6.0-8.3) L 07/27/17 05:50 Albumin 2.2 gm/dL (4.2-5.5) L 07/27/17 05:50 Globulin 3.0 gm/dL 07/27/17 05:50 Albumin/Globulin Ratio 0.7 (1.0-1.8) L 07/27/17 05:50 Urine Source RANDOM 07/26/17 21:05 Urine Color YELLOW 07/26/17 21:05 Urine Clarity CLEAR (CLEAR) 07/26/17 21:05 Urine pH 6.0 (4.6 - 8.0) 07/26/17 21:05 Ur Specific [place] 1.015 (1.005-1.030) 07/26/17 21:05 Urine Protein 100 mg/dL (NEGATIVE) H 05/07/18 21:05 Urine Glucose (UA) NEGATIVE mg/dL (NEGATIVE) 07/26/17 21:05 Urine Ketones NEGATIVE mg/dL (NEGATIVE) 07/26/17 21:05 Urine Blood LARGE (NEGATIVE) H 07/26/17 21:05 Urine Nitrate NEGATIVE (NEGATIVE) 07/26/17 21:05 Urine Bilirubin NEGATIVE (NEGATIVE) 07/26/17 21:05 Urine Urobilinogen 0.2 E.U./dL (0.2 - 1.0) 07/26/17 21:05 Ur Leukocyte Esterase SMALL (NEGATIVE) H 07/26/17 21:05 Urine RBC 25-50 /hpf (0-5) H 07/26/17 21:05 Urine WBC 6-10 /hpf (0-5) 07/26/17 21:05 Ur Epithelial Cells NONE SEEN /lpf (FEW) 07/26/17 21:05 Urine Bacteria FEW /hpf (NONE SEEN) 07/26/17 21:05 - Physical Exam Vitals and I&O: Vital Signs Temp 97.5 F 07/30/17 08:00 Pulse 81 07/30/17 08:00 Resp 18 07/30/17 08:00 BP 135/79 07/30/17 08:00 Pulse Ox 98 07/30/17 08:00 Intake & Output 07/29/17 07/30/17 07/30/17 18:59 06:59 18:59 Intake Total 200 240 Balance 200 240 Weight (lbs) 158.757 kg 160.572 kg 160.118 kg Intake: Oral 200 240 Other: # Voids 2 # Bowel Movements 1 Weight Source Bedscale Bedscale Bedscale Active Medications: Current Medications Acetaminophen/Hydrocodone Bitart ([place] 10 Mg/325 Mg) 1 tab PO Q4H PRN PRN Reason: Pain (Moderate) Stop: 09/25/17 22:13 Albuterol Sulfate (Albuterol 2.5mg/3ml Neb Ud) 2.5 mg HHN Q4H PRN PRN Reason: Shortness of Breath or Wheeze Stop: 09/25/17 22:12 Fluconazole (Diflucan) 100 mg PO DAILY RADHA Stop: 09/26/17 14:59 Last Admin: 07/30/17 08:20 Dose: 100 mg Ceftriaxone Sodium 1 gm/ (Sodium Chloride) 50 mls @ 100 mls/hr IV Q24HR RADHA Stop: 09/25/17 22:59 Last Admin: 07/29/17 23:07 Dose: 100 mls/hr Insulin Aspart (Novolog Insulin Sliding Scale) 0 units SUBQ ACHS RADHA PRN Reason: Protocol Stop: 09/25/17 07:29 Last Admin: 07/30/17 06:44 Dose: Not Given Lactic Acid (Lac-Hydrin Cream) 1 appl TP BID [facility] Stop: 09/26/17 16:59 Last Admin: 07/30/17 08:24 Dose: 1 appl Morphine Sulfate (Morphine) 4 mg IV Q4H PRN PRN Reason: Pain (Severe) Stop: 09/25/17 22:14 General: no acute distress, well developed, well nourished HEENT: atraumatic, normocephalic, PERRLA Neck: supple, no thyromegaly Cardiovascular: S1S2, regular Lungs: clear to auscultation bilaterally, clear to percussion Abdomen: soft, no tender, no distended, no mass, no rebound Extremities: no cyanosis, no clubbing Neurological: awake, alert, oriented Skin: intact Infectious Disease Assmt/Plan - Assessment Assessment: 1. Cellulitis of both lower extremities. 2. Severe dry skin dermatitis. And venous stasis. Associated fungal dermatitis 3. Obesity. 4. Chronic DVT. 5. Diabetes mellitus type 2. 6. hypertension. 7. 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 8. Recurrent UTIs. 9. Decubitus ulcer. 10. Status dermatitis. 11. Diabetic nephropathy - Plan Plan: Continue the same treatment. Nutritional Asmnt/Malnutr-PDOC - Dietary Evaluation Malnutrition Findings (Please click <Entered> for more info): Nutritional Asmnt/Malnutrition Start: 07/27/17 14: 58 Text: Status: Complete Freq: Document 07/27/17 14:58 NICOLE (Rec: 07/27/17 15:09 NICOLE [id number]) Nutritional Asmnt/Malnutrition Patient General Information Nutritional Screening High Risk Consult Diagnosis BLE cellulitis Pertinent Medical Hx/Surgical Hx not indicated Subjective Information Consult received for Dm, cellulitis and wound. Pt seen sitting up in bed at time of visit, awake and alert. Pt reported appetitie good. Current Diet Order/ Nutrition Support 1800 ADA cardiac renal Pertinent Medications novolog Pertinent Labs 07/27 Cl 113, BUN 36, Cr 1.6 Nutritional Hx/Data Height 1.78 m Height (Calculated Centimeters) 177.8 Current Weight (lbs) 159.665 kg Weight (Calculated Kilograms) 159.7 Weight (Calculated Grams) 385240.5 [place] Body Weight 166 Body Mass Index (BMI) 50.5 Recent Weight Change No Weight Status Morbidly Obese GI Symptoms GI Symptoms None Last BM none Difficult in: None Usual diet at home diabetic and renal diet per pt Skin Integrity/Comment: rash to coccyx, right hand, abdomen, back skin tear to left leg, right leg reddened to sacrotum pressure area to buttocks Estimated Nutritional Goals BEE in Kcals: Adj wt of IBW Calories/Kcals/Kg 20-25 Kcals Calculated 7093-2004 Protein: Adj wt of IBW Protein g/k Protein Calculated 96 Fluid: ml 1920-2400ml (1ml/kcal) Nutritional Problem 1. Problem Problem altered nutrition related labs Etiology renal dysfunction Signs/Symptoms: BUN 36, Cr 1.6 Malnutrition Alert Protein-Calorie Malnutrition N/A Is there a minimum of two criteria No selected? Query Text:Check all the applicable criteria. A minimum of two criteria are recommended for diagnosis of either severe or non-severe malnutrition. Intervention/Recommendation Comments 1. Continue with current diet as ordered. Encouraged veggetable intake. Pt verbalized understood. 2. Monitor PO intake, wt, labs and skin integrity 3. F/U as moderate risk in 3-5 days, 07/30-07/31 Expected Outcomes/Goals Expected Outcomes/Goals 1. PO intake to meet at least 75% of nutritional needs. 2. Wt stability, skin to remain intact, labs to approach WNL.
--- NOTE | 2017-07-30 10:39 | Infectious Disease Prog Note ---
Infectious Disease Subjective - Review of Systems Service Date: 07/30/17 Subjective: There is no new change, no fever. Infectious Disease Objective - Results Result Diagrams: 07/30/17 06:10 07/27/17 05:50 Recent Labs: Laboratory Last Values WBC 8.3 Th/cmm (4.8-10.8) 07/30/17 06:10 RBC 4.69 Mil/cmm (3.80-5.80) 07/30/17 06:10 Hgb 12.1 gm/dL (12-16) 07/30/17 06:10 Hct 36.4 % (41.0-60) L 07/30/17 06:10 MCV 77.8 fl (80-99) L 07/30/17 06:10 MCH 25.8 pg (27.0-31.0) L 07/30/17 06:10 MCHC Differential 33.2 pg (28.0-36.0) 07/30/17 06:10 RDW 13.1 % (11.5-20.0) 07/30/17 06:10 Plt Count 205 Th/cmm (150-400) 07/30/17 06:10 MPV 7.5 fl 07/30/17 06:10 Neutrophils % 50.5 % (40.0-80.0) 07/30/17 06:10 Lymphocytes % 21.4 % (20.0-50.0) 07/30/17 06:10 Monocytes % 7.5 % (2.0-10.0) 07/30/17 06:10 Eosinophils % 19.7 % (0.0-5.0) H 07/30/17 06:10 Basophils % 0.9 % (0.0-2.0) 07/30/17 06:10 Sodium 142 mEq/L (136-145) 07/27/17 05:50 Potassium 4.2 mEq/L (3.5-5.1) 07/27/17 05:50 Chloride 113 mEq/L (98-107) H 07/27/17 05:50 Carbon Dioxide 24.7 mEq/L (21.0-31.0) 07/27/17 05:50 Anion Gap 8.5 (7.0-16.0) 07/27/17 05:50 BUN 36 mg/dL (7-25) H 07/27/17 05:50 Creatinine 1.6 mg/dL (0.7-1.3) H 07/27/17 05:50 Est GFR ( Amer) TNP 07/27/17 05:50 Est GFR (Non-Af Amer) TNP 07/27/17 05:50 BUN/Creatinine Ratio 22.5 07/27/17 05:50 Glucose 92 mg/dL (70-105) 07/27/17 05:50 POC Glucose 80 MG/DL (70 - 105) 07/30/17 06:30 Whole Bld Lactic Acid 0.71 mmol/L (0.60-1.99) 07/26/17 23:00 Calcium 8.0 mg/dL (8.6-10.3) L 07/27/17 05:50 Total Bilirubin 0.4 mg/dL (0.3-1.0) 07/27/17 05:50 AST 10 U/L (13-39) L 07/27/17 05:50 ALT 8 U/L (7-52) 07/27/17 05:50 Alkaline Phosphatase 75 U/L (34-104) 07/27/17 05:50 Troponin I 0.01 ng/mL (0.01-0.05) 07/26/17 20:45 B-Natriuretic Peptide 296.0 pg/mL (5.0-100.0) H 07/30/17 06:10 Total Protein 5.2 gm/dL (6.0-8.3) L 07/27/17 05:50 Albumin 2.2 gm/dL (4.2-5.5) L 07/27/17 05:50 Globulin 3.0 gm/dL 07/27/17 05:50 Albumin/Globulin Ratio 0.7 (1.0-1.8) L 07/27/17 05:50 Urine Source RANDOM 07/26/17 21:05 Urine Color YELLOW 07/26/17 21:05 Urine Clarity CLEAR (CLEAR) 07/26/17 21:05 Urine pH 6.0 (4.6 - 8.0) 07/26/17 21:05 Ur Specific [place] 1.015 (1.005-1.030) 07/26/17 21:05 Urine Protein 100 mg/dL (NEGATIVE) H 05/07/18 21:05 Urine Glucose (UA) NEGATIVE mg/dL (NEGATIVE) 07/26/17 21:05 Urine Ketones NEGATIVE mg/dL (NEGATIVE) 07/26/17 21:05 Urine Blood LARGE (NEGATIVE) H 07/26/17 21:05 Urine Nitrate NEGATIVE (NEGATIVE) 07/26/17 21:05 Urine Bilirubin NEGATIVE (NEGATIVE) 07/26/17 21:05 Urine Urobilinogen 0.2 E.U./dL (0.2 - 1.0) 07/26/17 21:05 Ur Leukocyte Esterase SMALL (NEGATIVE) H 07/26/17 21:05 Urine RBC 25-50 /hpf (0-5) H 07/26/17 21:05 Urine WBC 6-10 /hpf (0-5) 07/26/17 21:05 Ur Epithelial Cells NONE SEEN /lpf (FEW) 07/26/17 21:05 Urine Bacteria FEW /hpf (NONE SEEN) 07/26/17 21:05 - Physical Exam Vitals and I&O: Vital Signs Temp 97.5 F 07/30/17 08:00 Pulse 81 07/30/17 08:00 Resp 18 07/30/17 08:00 BP 135/79 07/30/17 08:00 Pulse Ox 98 07/30/17 08:00 Intake & Output 07/29/17 07/30/17 07/30/17 18:59 06:59 18:59 Intake Total 200 240 Balance 200 240 Weight (lbs) 158.757 kg 160.572 kg 160.118 kg Intake: Oral 200 240 Other: # Voids 2 # Bowel Movements 1 Weight Source Bedscale Bedscale Bedscale Active Medications: Current Medications Acetaminophen/Hydrocodone Bitart ([place] 10 Mg/325 Mg) 1 tab PO Q4H PRN PRN Reason: Pain (Moderate) Stop: 09/25/17 22:13 Albuterol Sulfate (Albuterol 2.5mg/3ml Neb Ud) 2.5 mg HHN Q4H PRN PRN Reason: Shortness of Breath or Wheeze Stop: 09/25/17 22:12 Fluconazole (Diflucan) 100 mg PO DAILY RADHA Stop: 09/26/17 14:59 Last Admin: 07/30/17 08:20 Dose: 100 mg Ceftriaxone Sodium 1 gm/ (Sodium Chloride) 50 mls @ 100 mls/hr IV Q24HR RADHA Stop: 09/25/17 22:59 Last Admin: 07/29/17 23:07 Dose: 100 mls/hr Insulin Aspart (Novolog Insulin Sliding Scale) 0 units SUBQ ACHS RADHA PRN Reason: Protocol Stop: 09/25/17 07:29 Last Admin: 07/30/17 06:44 Dose: Not Given Lactic Acid (Lac-Hydrin Cream) 1 appl TP BID [facility] Stop: 09/26/17 16:59 Last Admin: 07/30/17 08:24 Dose: 1 appl Morphine Sulfate (Morphine) 4 mg IV Q4H PRN PRN Reason: Pain (Severe) Stop: 09/25/17 22:14 General: no acute distress, well developed, well nourished HEENT: atraumatic, normocephalic, PERRLA, EOMI Neck: supple, no thyromegaly Cardiovascular: S1S2, regular Lungs: clear to auscultation bilaterally, clear to percussion Abdomen: soft, no tender, no distended, no bowel sounds Extremities: other (flaking of the skin, improving), no cyanosis, no clubbing Neurological: awake, alert, oriented Skin: intact Infectious Disease Assmt/Plan - Assessment Assessment: 1. Cellulitis of both lower extremities. 2. Severe dry skin dermatitis. And venous stasis. Associated fungal dermatitis 3. Obesity. 4. Chronic DVT. 5. Diabetes mellitus type 2. 6. hypertension. 7. 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 8. Recurrent UTIs. 9. Decubitus ulcer. 10. Status dermatitis. 11. Diabetic nephropathy - Plan Plan: Continue the same treatment. Nutritional Asmnt/Malnutr-PDOC - Dietary Evaluation Malnutrition Findings (Please click <Entered> for more info): Nutritional Asmnt/Malnutrition Start: 07/27/17 14: 58 Text: Status: Complete Freq: Document 07/27/17 14:58 NICOLE (Rec: 07/27/17 15:09 NICOLE [email or web address]) Nutritional Asmnt/Malnutrition Patient General Information Nutritional Screening High Risk Consult Diagnosis BLE cellulitis Pertinent Medical Hx/Surgical Hx not indicated Subjective Information Consult received for Dm, cellulitis and wound. Pt seen sitting up in bed at time of visit, awake and alert. Pt reported appetitie good. Current Diet Order/ Nutrition Support 1800 ADA cardiac renal Pertinent Medications novolog Pertinent Labs 07/27 Cl 113, BUN 36, Cr 1.6 Nutritional Hx/Data Height 1.78 m Height (Calculated Centimeters) 177.8 Current Weight (lbs) 159.665 kg Weight (Calculated Kilograms) 159.7 Weight (Calculated Grams) 048623.5 [place] Body Weight 166 Body Mass Index (BMI) 50.5 Recent Weight Change No Weight Status Morbidly Obese GI Symptoms GI Symptoms None Last BM none Difficult in: None Usual diet at home diabetic and renal diet per pt Skin Integrity/Comment: rash to coccyx, right hand, abdomen, back skin tear to left leg, right leg reddened to sacrotum pressure area to buttocks Estimated Nutritional Goals BEE in Kcals: Adj wt of IBW Calories/Kcals/Kg 20-25 Kcals Calculated 0883-8354 Protein: Adj wt of IBW Protein g/k Protein Calculated 96 Fluid: ml 1920-2400ml (1ml/kcal) Nutritional Problem 1. Problem Problem altered nutrition related labs Etiology renal dysfunction Signs/Symptoms: BUN 36, Cr 1.6 Malnutrition Alert Protein-Calorie Malnutrition N/A Is there a minimum of two criteria No selected? Query Text:Check all the applicable criteria. A minimum of two criteria are recommended for diagnosis of either severe or non-severe malnutrition. Intervention/Recommendation Comments 1. Continue with current diet as ordered. Encouraged veggetable intake. Pt verbalized understood. 2. Monitor PO intake, wt, labs and skin integrity 3. F/U as moderate risk in 3-5 days, 07/30-07/31 Expected Outcomes/Goals Expected Outcomes/Goals 1. PO intake to meet at least 75% of nutritional needs. 2. Wt stability, skin to remain intact, labs to approach WNL.
[2017-07-30] MEDS ORDERED: Probiotic Screen MC PRN (13:12)
--- NOTE | 2017-07-31 00:22 | Progress Notes ---
DATE: 07/30/2017 SUBJECTIVE: The patient complains of some pain in the right lower extremity. OBJECTIVE: VITAL SIGNS: Basically stable. HEENT: Normocephalic, atraumatic. Pupils equal, round, react to light and accommodation. CHEST: Symmetrical. LUNGS: Few wheezing appreciated. CARDIAC: Normal sinus rhythm. S1, S2. ABDOMEN: Benign, soft, nontender. EXTREMITIES: There is stasis dermatitis and cellulitis in bilateral lower extremities, especially, her right side. NEUROLOGICAL: Without significant change. LABORATORY DATA: Reviewed, seen from the computer. ASSESSMENT AND PLAN: 1. Multiple decubitus ulcers: of 12 hours and continue wound care. 2. Short of breath, improving. 3. Acute cellulitis involving bilateral lower extremity, more so on the right side. IVPB antibiotics and pending final blood culture result and we will adjust antibiotic accordingly. 4. Chronic obstructive pulmonary disease: RT protocol. 5. Diabetes: Sliding scale insulin low dose. 6. History of coronary artery disease, status post myocardial infarction. 7. Diabetic nephropathy: Try to avoid nephrotoxic medications if possible. 8. Status post major CVA over 32 or 33 years ago with right hemiplegia. 9. DVT of the right lower extremity: Continue anticoagulation. 10. Pain management. JOB# [id number]
[2017-07-31] MEDS: INSULIN ASPART SLIDING SCALE 100 UNITS/ML UNIT SUBQ SCH ×4 (06:51→23:01)
[2017-07-31] MEDS: cefTRIAXone 1 GM in Sodium Chloride 0.9% 50 ML IV SCH ×2 (06:53→22:59)
[2017-07-31] MEDS: Lactobacillus Rhamnosus GG 15 Billion CFU CAP.SPRINK PO SCH (08:37)
[2017-07-31] MEDS: Ammonium Lactate Cream 140 gm Tube TP SCH ×2 (08:37→16:47)
--- NOTE | 2017-07-31 23:24 | Infectious Disease Prog Note ---
Infectious Disease Subjective - Review of Systems Service Date: 07/31/17 Subjective: There is no new change, no fever. Infectious Disease Objective - Results Result Diagrams: 07/30/17 06:10 07/27/17 05:50 Recent Labs: Laboratory Last Values WBC 8.3 Th/cmm (4.8-10.8) 07/30/17 06:10 RBC 4.69 Mil/cmm (3.80-5.80) 07/30/17 06:10 Hgb 12.1 gm/dL (12-16) 07/30/17 06:10 Hct 36.4 % (41.0-60) L 07/30/17 06:10 MCV 77.8 fl (80-99) L 07/30/17 06:10 MCH 25.8 pg (27.0-31.0) L 07/30/17 06:10 MCHC Differential 33.2 pg (28.0-36.0) 07/30/17 06:10 RDW 13.1 % (11.5-20.0) 07/30/17 06:10 Plt Count 205 Th/cmm (150-400) 07/30/17 06:10 MPV 7.5 fl 07/30/17 06:10 Neutrophils % 50.5 % (40.0-80.0) 07/30/17 06:10 Lymphocytes % 21.4 % (20.0-50.0) 07/30/17 06:10 Monocytes % 7.5 % (2.0-10.0) 07/30/17 06:10 Eosinophils % 19.7 % (0.0-5.0) H 07/30/17 06:10 Basophils % 0.9 % (0.0-2.0) 07/30/17 06:10 Sodium 142 mEq/L (136-145) 07/27/17 05:50 Potassium 4.2 mEq/L (3.5-5.1) 07/27/17 05:50 Chloride 113 mEq/L (98-107) H 07/27/17 05:50 Carbon Dioxide 24.7 mEq/L (21.0-31.0) 07/27/17 05:50 Anion Gap 8.5 (7.0-16.0) 07/27/17 05:50 BUN 36 mg/dL (7-25) H 07/27/17 05:50 Creatinine 1.6 mg/dL (0.7-1.3) H 07/27/17 05:50 Est GFR ( Amer) TNP 07/27/17 05:50 Est GFR (Non-Af Amer) TNP 07/27/17 05:50 BUN/Creatinine Ratio 22.5 07/27/17 05:50 Glucose 92 mg/dL (70-105) 07/27/17 05:50 POC Glucose 117 MG/DL (70 - 105) H 07/31/17 21:45 Whole Bld Lactic Acid 0.71 mmol/L (0.60-1.99) 07/26/17 23:00 Calcium 8.0 mg/dL (8.6-10.3) L 07/27/17 05:50 Total Bilirubin 0.4 mg/dL (0.3-1.0) 07/27/17 05:50 AST 10 U/L (13-39) L 07/27/17 05:50 ALT 8 U/L (7-52) 07/27/17 05:50 Alkaline Phosphatase 75 U/L (34-104) 07/27/17 05:50 Troponin I 0.01 ng/mL (0.01-0.05) 07/26/17 20:45 B-Natriuretic Peptide 296.0 pg/mL (5.0-100.0) H 07/30/17 06:10 Total Protein 5.2 gm/dL (6.0-8.3) L 07/27/17 05:50 Albumin 2.2 gm/dL (4.2-5.5) L 07/27/17 05:50 Globulin 3.0 gm/dL 07/27/17 05:50 Albumin/Globulin Ratio 0.7 (1.0-1.8) L 07/27/17 05:50 Urine Source RANDOM 07/26/17 21:05 Urine Color YELLOW 07/26/17 21:05 Urine Clarity CLEAR (CLEAR) 07/26/17 21:05 Urine pH 6.0 (4.6 - 8.0) 07/26/17 21:05 Ur Specific [place] 1.015 (1.005-1.030) 07/26/17 21:05 Urine Protein 100 mg/dL (NEGATIVE) H 07/26/17 21:05 Urine Glucose (UA) NEGATIVE mg/dL (NEGATIVE) 07/26/17 21:05 Urine Ketones NEGATIVE mg/dL (NEGATIVE) 07/26/17 21:05 Urine Blood LARGE (NEGATIVE) H 07/26/17 21:05 Urine Nitrate NEGATIVE (NEGATIVE) 07/26/17 21:05 Urine Bilirubin NEGATIVE (NEGATIVE) 07/26/17 21:05 Urine Urobilinogen 0.2 E.U./dL (0.2 - 1.0) 07/26/17 21:05 Ur Leukocyte Esterase SMALL (NEGATIVE) H 07/26/17 21:05 Urine RBC 25-50 /hpf (0-5) H 07/26/17 21:05 Urine WBC 6-10 /hpf (0-5) 07/26/17 21:05 Ur Epithelial Cells NONE SEEN /lpf (FEW) 07/26/17 21:05 Urine Bacteria FEW /hpf (NONE SEEN) 07/26/17 21:05 - Physical Exam Vitals and I&O: Vital Signs Temp 98.6 F 07/31/17 16:00 Pulse 72 07/31/17 16:00 Resp 17 07/31/17 16:00 BP 132/79 07/31/17 16:00 Pulse Ox 98 07/31/17 16:00 Intake & Output 07/31/17 07/31/17 08/01/17 06:59 18:59 06:59 Intake Total 250 650 Output Total 550 Balance 250 100 Weight (lbs) 161.479 kg 161.479 kg Intake: Intake, IV Amount 50 50 cefTRIAXone 1 gm In 50 50 Sodium Chloride 0.9% 50 ml @ 100 mls/hr IV Q24HR [facility] Rx#:[id number] Oral 200 600 Output: Urine 550 Other: # Voids 2 # Bowel Movements 0 0 Weight Source Bedscale Bedscale Active Medications: Current Medications Acetaminophen/Hydrocodone Bitart ([place] 10 Mg/325 Mg) 1 tab PO Q4H PRN PRN Reason: Pain (Moderate) Stop: 09/25/17 22:13 Albuterol Sulfate (Albuterol 2.5mg/3ml Neb Ud) 2.5 mg HHN Q4H PRN PRN Reason: Shortness of Breath or Wheeze Stop: 09/25/17 22:12 Fluconazole (Diflucan) 100 mg PO DAILY [facility] Stop: 09/26/17 14:59 Last Admin: 07/31/17 08:37 Dose: 100 mg Ceftriaxone Sodium 1 gm/ (Sodium Chloride) 50 mls @ 100 mls/hr IV Q24HR RADHA Stop: 09/25/17 22:59 Last Admin: 07/31/17 22:59 Dose: 100 mls/hr Insulin Aspart (Novolog Insulin Sliding Scale) 0 units SUBQ ACHS RADHA PRN Reason: Protocol Stop: 09/25/17 07:29 Last Admin: 07/31/17 23:01 Dose: Not Given Lactic Acid (Lac-Hydrin Cream) 1 appl TP BID [facility] Stop: 09/26/17 16:59 Last Admin: 07/31/17 16:47 Dose: 1 appl Lactobacillus Rhamnosus (Culturelle 15b) 1 each PO DAILY RADHA Stop: 09/29/17 08:59 Last Admin: 07/31/17 08:37 Dose: 1 each Miscellaneous (Probiotic Screen) 1 ea MC PRN PRN PRN Reason: PROTOCOL Stop: 09/28/17 13:11 Morphine Sulfate (Morphine) 4 mg IV Q4H PRN PRN Reason: Pain (Severe) Stop: 09/25/17 22:14 General: no acute distress, well developed, well nourished HEENT: atraumatic, normocephalic, PERRLA, EOMI Neck: supple, no thyromegaly Cardiovascular: S1S2, regular Lungs: clear to auscultation bilaterally, clear to percussion Abdomen: soft, no tender, no distended, no mass Extremities: other (flaking of the skin of the legs gradually, improving ), no cyanosis, no clubbing, no edema Neurological: awake, alert, oriented Skin: intact Infectious Disease Assmt/Plan - Assessment Assessment: 1. Cellulitis of both lower extremities. 2. Severe dry skin dermatitis. And venous stasis. Associated fungal dermatitis 3. Obesity. 4. Chronic DVT. 5. Diabetes mellitus type 2. 6. hypertension. 7. 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 8. Recurrent UTIs. 9. Decubitus ulcer. 10. Status dermatitis. 11. Diabetic nephropathy - Plan Plan: Continue the same treatment. Nutritional Asmnt/Malnutr-PDOC - Dietary Evaluation Malnutrition Findings (Please click <Entered> for more info): Nutritional Asmnt/Malnutrition Start: 07/27/17 14: 58 Text: Status: Complete Freq: Document 07/27/17 14:58 NICOLE (Rec: 07/27/17 15:09 NICOLE [email or web address]) Nutritional Asmnt/Malnutrition Patient General Information Nutritional Screening High Risk Consult Diagnosis BLE cellulitis Pertinent Medical Hx/Surgical Hx not indicated Subjective Information Consult received for Dm, cellulitis and wound. Pt seen sitting up in bed at time of visit, awake and alert. Pt reported appetitie good. Current Diet Order/ Nutrition Support 1800 ADA cardiac renal Pertinent Medications novolog Pertinent Labs 07/27 Cl 113, BUN 36, Cr 1.6 Nutritional Hx/Data Height 1.78 m Height (Calculated Centimeters) 177.8 Current Weight (lbs) 159.665 kg Weight (Calculated Kilograms) 159.7 Weight (Calculated Grams) 414573.5 Filion Body Weight 166 Body Mass Index (BMI) 50.5 Recent Weight Change No Weight Status Morbidly Obese GI Symptoms GI Symptoms None Last BM none Difficult in: None Usual diet at home diabetic and renal diet per pt Skin Integrity/Comment: rash to coccyx, right hand, abdomen, back skin tear to left leg, right leg reddened to sacrotum pressure area to buttocks Estimated Nutritional Goals BEE in Kcals: Adj wt of IBW Calories/Kcals/Kg 20-25 Kcals Calculated 0571-2719 Protein: Adj wt of IBW Protein g/k Protein Calculated 96 Fluid: ml 1920-2400ml (1ml/kcal) Nutritional Problem 1. Problem Problem altered nutrition related labs Etiology renal dysfunction Signs/Symptoms: BUN 36, Cr 1.6 Malnutrition Alert Protein-Calorie Malnutrition N/A Is there a minimum of two criteria No selected? Query Text:Check all the applicable criteria. A minimum of two criteria are recommended for diagnosis of either severe or non-severe malnutrition. Intervention/Recommendation Comments 1. Continue with current diet as ordered. Encouraged veggetable intake. Pt verbalized understood. 2. Monitor PO intake, wt, labs and skin integrity 3. F/U as moderate risk in 3-5 days, 07/30-07/31 Expected Outcomes/Goals Expected Outcomes/Goals 1. PO intake to meet at least 75% of nutritional needs. 2. Wt stability, skin to remain intact, labs to approach WNL.
[2017-08-01] MEDS: INSULIN ASPART SLIDING SCALE 100 UNITS/ML UNIT SUBQ SCH ×5 (07:49→20:37)
[2017-08-01] MEDS: Ammonium Lactate Cream 140 gm Tube TP SCH ×2 (09:09→16:47)
[2017-08-01] MEDS: Lactobacillus Rhamnosus GG 15 Billion CFU CAP.SPRINK PO SCH (09:09)
[2017-08-01] MEDS: cefTRIAXone 1 GM in Sodium Chloride 0.9% 50 ML IV SCH (23:30)
[2017-08-02] MEDS: INSULIN ASPART SLIDING SCALE 100 UNITS/ML UNIT SUBQ SCH ×3 (07:50→21:52)
[2017-08-02] MEDS: Lactobacillus Rhamnosus GG 15 Billion CFU CAP.SPRINK PO SCH (09:37)
--- NOTE | 2017-08-02 11:06 | Infectious Disease Prog Note ---
Infectious Disease Subjective - Review of Systems Service Date: 08/02/17 Subjective: There is no new change, no fever. Infectious Disease Objective - Results Result Diagrams: 07/30/17 06:10 07/27/17 05:50 Recent Labs: Laboratory Last Values WBC 8.3 Th/cmm (4.8-10.8) 07/30/17 06:10 RBC 4.69 Mil/cmm (3.80-5.80) 07/30/17 06:10 Hgb 12.1 gm/dL (12-16) 07/30/17 06:10 Hct 36.4 % (41.0-60) L 07/30/17 06:10 MCV 77.8 fl (80-99) L 07/30/17 06:10 MCH 25.8 pg (27.0-31.0) L 07/30/17 06:10 MCHC Differential 33.2 pg (28.0-36.0) 07/30/17 06:10 RDW 13.1 % (11.5-20.0) 07/30/17 06:10 Plt Count 205 Th/cmm (150-400) 07/30/17 06:10 MPV 7.5 fl 07/30/17 06:10 Neutrophils % 50.5 % (40.0-80.0) 07/30/17 06:10 Lymphocytes % 21.4 % (20.0-50.0) 07/30/17 06:10 Monocytes % 7.5 % (2.0-10.0) 07/30/17 06:10 Eosinophils % 19.7 % (0.0-5.0) H 07/30/17 06:10 Basophils % 0.9 % (0.0-2.0) 07/30/17 06:10 Sodium 142 mEq/L (136-145) 07/27/17 05:50 Potassium 4.2 mEq/L (3.5-5.1) 07/27/17 05:50 Chloride 113 mEq/L (98-107) H 07/27/17 05:50 Carbon Dioxide 24.7 mEq/L (21.0-31.0) 07/27/17 05:50 Anion Gap 8.5 (7.0-16.0) 07/27/17 05:50 BUN 36 mg/dL (7-25) H 07/27/17 05:50 Creatinine 1.6 mg/dL (0.7-1.3) H 07/27/17 05:50 Est GFR ( Amer) TNP 07/27/17 05:50 Est GFR (Non-Af Amer) TNP 07/27/17 05:50 BUN/Creatinine Ratio 22.5 07/27/17 05:50 Glucose 92 mg/dL (70-105) 07/27/17 05:50 POC Glucose 91 MG/DL (70 - 105) 08/02/17 07:05 Whole Bld Lactic Acid 0.71 mmol/L (0.60-1.99) 07/26/17 23:00 Calcium 8.0 mg/dL (8.6-10.3) L 07/27/17 05:50 Total Bilirubin 0.4 mg/dL (0.3-1.0) 07/27/17 05:50 AST 10 U/L (13-39) L 07/27/17 05:50 ALT 8 U/L (7-52) 07/27/17 05:50 Alkaline Phosphatase 75 U/L (34-104) 07/27/17 05:50 Troponin I 0.01 ng/mL (0.01-0.05) 07/26/17 20:45 B-Natriuretic Peptide 296.0 pg/mL (5.0-100.0) H 07/30/17 06:10 Total Protein 5.2 gm/dL (6.0-8.3) L 07/27/17 05:50 Albumin 2.2 gm/dL (4.2-5.5) L 07/27/17 05:50 Globulin 3.0 gm/dL 07/27/17 05:50 Albumin/Globulin Ratio 0.7 (1.0-1.8) L 07/27/17 05:50 Urine Source RANDOM 07/26/17 21:05 Urine Color YELLOW 07/26/17 21:05 Urine Clarity CLEAR (CLEAR) 07/26/17 21:05 Urine pH 6.0 (4.6 - 8.0) 07/26/17 21:05 Ur Specific [place] 1.015 (1.005-1.030) 07/26/17 21:05 Urine Protein 100 mg/dL (NEGATIVE) H 05/07/18 21:05 Urine Glucose (UA) NEGATIVE mg/dL (NEGATIVE) 07/26/17 21:05 Urine Ketones NEGATIVE mg/dL (NEGATIVE) 07/26/17 21:05 Urine Blood LARGE (NEGATIVE) H 07/26/17 21:05 Urine Nitrate NEGATIVE (NEGATIVE) 07/26/17 21:05 Urine Bilirubin NEGATIVE (NEGATIVE) 07/26/17 21:05 Urine Urobilinogen 0.2 E.U./dL (0.2 - 1.0) 07/26/17 21:05 Ur Leukocyte Esterase SMALL (NEGATIVE) H 07/26/17 21:05 Urine RBC 25-50 /hpf (0-5) H 07/26/17 21:05 Urine WBC 6-10 /hpf (0-5) 07/26/17 21:05 Ur Epithelial Cells NONE SEEN /lpf (FEW) 07/26/17 21:05 Urine Bacteria FEW /hpf (NONE SEEN) 07/26/17 21:05 - Physical Exam Vitals and I&O: Vital Signs Temp 97.9 F 08/02/17 07:49 Pulse 67 08/02/17 07:55 Resp 18 08/02/17 08:36 BP 124/70 08/02/17 07:49 Pulse Ox 99 08/02/17 07:55 Intake & Output 08/01/17 08/02/17 08/02/17 18:59 06:59 18:59 Intake Total 1250 50 Balance 1250 50 Weight (lbs) 161.842 kg Intake: Intake, IV Amount 50 cefTRIAXone 1 gm In 50 Sodium Chloride 0.9% 50 ml @ 100 mls/hr IV Q24HR [facility] Rx#:[id number] Oral 1250 Other: # Voids 3 # Bowel Movements 1 Stool Characteristics Soft Soft Formed Formed Brown Brown Weight Source Bedscale Active Medications: Current Medications Acetaminophen/Hydrocodone Bitart ([place]nel[place] 10 Mg/325 Mg) 1 tab PO Q4H PRN PRN Reason: Pain (Moderate) Stop: 09/25/17 22:13 Albuterol Sulfate (Albuterol 2.5mg/3ml Neb Ud) 2.5 mg HHN Q4H PRN PRN Reason: Shortness of Breath or Wheeze Stop: 09/25/17 22:12 Last Admin: 08/01/17 12:23 Dose: 2.5 mg Fluconazole (Diflucan) 100 mg PO DAILY [facility] [place] Stop: 09/26/17 14:59 Last Admin: 08/02/17 09:37 Dose: 100 mg Ceftriaxone Sodium 1 gm/ (Sodium Chloride) 50 mls @ 100 mls/hr IV Q24HR RADHA Stop: 09/25/17 22:59 Last Infusion: 08/02/17 00:00 Dose: Infused Insulin Aspart (Novolog Insulin Sliding Scale) 0 units SUBQ ACHS RADHA PRN Reason: Protocol Stop: 09/25/17 07:29 Last Admin: 08/02/17 07:50 Dose: Not Given Lactic Acid (Lac-Hydrin Cream) 1 appl TP BID RADHA Stop: 09/26/17 16:59 Last Admin: 08/01/17 16:47 Dose: 1 appl Lactobacillus Rhamnosus (Culturelle 15b) 1 each PO DAILY RADHA Stop: 09/29/17 08:59 Last Admin: 08/02/17 09:37 Dose: 1 each Miscellaneous (Probiotic Screen) 1 ea MC PRN PRN PRN Reason: PROTOCOL Stop: 09/28/17 13:11 Morphine Sulfate (Morphine) 4 mg IV Q4H PRN PRN Reason: Pain (Severe) Stop: 09/25/17 22:14 General: no acute distress, well developed, well nourished HEENT: atraumatic, normocephalic, PERRLA Neck: supple, rigid, tracheostomy, no thyromegaly, no lymphadenopathy Cardiovascular: S1S2, regular, systolic murmur, no thrills Lungs: clear to auscultation bilaterally, clear to percussion, wheeze Abdomen: soft, no tender, no distended Extremities: no cyanosis, no clubbing, no edema Neurological: awake, alert, oriented Skin: intact Infectious Disease Assmt/Plan - Assessment Assessment: 1. Cellulitis of both lower extremities. 2. Severe dry skin dermatitis. And venous stasis. Associated fungal dermatitis 3. Obesity. 4. Chronic DVT. 5. Diabetes mellitus type 2. 6. hypertension. 7. 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 8. Recurrent UTIs. 9. Decubitus ulcer. 10. Status dermatitis. 11. Diabetic nephropathy - Plan Plan: Continue the same treatment. Nutritional Asmnt/Malnutr-PDOC - Dietary Evaluation Malnutrition Findings (Please click <Entered> for more info): Nutritional Asmnt/Malnutrition Start: 07/27/17 14: 58 Text: Status: Complete Freq: Document 07/27/17 14:58 ASMITAMARIEG (Rec: 07/27/17 15:09 NICOLE [email or web address]) Nutritional Asmnt/Malnutrition Patient General Information Nutritional Screening High Risk Consult Diagnosis BLE cellulitis Pertinent Medical Hx/Surgical Hx not indicated Subjective Information Consult received for Dm, cellulitis and wound. Pt seen sitting up in bed at time of visit, awake and alert. Pt reported appetitie good. Current Diet Order/ Nutrition Support 1800 ADA cardiac renal Pertinent Medications novolog Pertinent Labs 07/27 Cl 113, BUN 36, Cr 1.6 Nutritional Hx/Data Height 1.78 m Height (Calculated Centimeters) 177.8 Current Weight (lbs) 159.665 kg Weight (Calculated Kilograms) 159.7 Weight (Calculated Grams) 203962.5 [place] Body Weight 166 Body Mass Index (BMI) 50.5 Recent Weight Change No Weight Status Morbidly Obese GI Symptoms GI Symptoms None Last BM none Difficult in: None Usual diet at home diabetic and renal diet per pt Skin Integrity/Comment: rash to coccyx, right hand, abdomen, back skin tear to left leg, right leg reddened to sacrotum pressure area to buttocks Estimated Nutritional Goals BEE in Kcals: Adj wt of IBW Calories/Kcals/Kg 20-25 Kcals Calculated 1188-7079 Protein: Adj wt of IBW Protein g/k Protein Calculated 96 Fluid: ml 1920-2400ml (1ml/kcal) Nutritional Problem 1. Problem Problem altered nutrition related labs Etiology renal dysfunction Signs/Symptoms: BUN 36, Cr 1.6 Malnutrition Alert Protein-Calorie Malnutrition N/A Is there a minimum of two criteria No selected? Query Text:Check all the applicable criteria. A minimum of two criteria are recommended for diagnosis of either severe or non-severe malnutrition. Intervention/Recommendation Comments 1. Continue with current diet as ordered. Encouraged veggetable intake. Pt verbalized understood. 2. Monitor PO intake, wt, labs and skin integrity 3. F/U as moderate risk in 3-5 days, 07/30-07/31 Expected Outcomes/Goals Expected Outcomes/Goals 1. PO intake to meet at least 75% of nutritional needs. 2. Wt stability, skin to remain intact, labs to approach WNL.
--- NOTE | 2017-08-03 02:24 | Discharge Summary ---
DATE OF DISCHARGE: 08/03/2017 FINAL DIAGNOSES: 1. Acute severe cellulitis in the right lower extremity: The patient received IVPBo antibiotics with some improvement. 2. Multiple decubitus ulcers, received wound care. 3. Diabetic nephropathy. 4. Out of control diabetes. 5. Respiratory insufficiency due to chronic obstructive pulmonary disease and congestive heart failure. 6. Chronic obstructive pulmonary disease, received RT protocol. 7. Congestive heart failure due to coronary artery disease, status post [place]. 8. Status post major CVA 32 years ago with right hemiplegia. 9. Chronic deep venous thrombosis, right lower extremity. HOSPITAL COURSE: The patient is a 77-year-old male admitted due to severe pain of bilateral lower extremities, especially on the right side, which was due to the combination of severe cellulitis and wound as well as DVT and degenerative joint disease. The patient received IVPB antibiotics and wound care with stabilization. Due to the patient's multiple complicated medical conditions it is appropriate for patient to be managed in the acute long-term care hospital, which was also the patient's wish. The patient was accepted to [facility]. DISCHARGE CONDITION: Stable. DISPOSITION: [facility]. DISCHARGE MEDICATIONS: Continue medications from here. DIET: ADA, cardiac, renal soft diet. ACTIVITY: Bed rest with physical therapy. FOLLOWUP: Same day in [place]. JOB# [id number]
== END 2017-08-02 22:40 | DRG 603 ==
LOC: ER 19:54 → TELE 07-27
PROVIDERS: ADMIT Internal Medicine; ATTEND Internal Medicine
DX: L03.116 Cellulitis of left lower limb (principal); N39.0 Urinary tract infection, site not specified; I69.351 Hemiplegia and hemiparesis following cerebral infarction affecting right dominant side; Z68.43 Body mass index [BMI] 50.0-59.9, adult; I82.501 Chronic embolism and thrombosis of unspecified deep veins of right lower extremity; R65.10 Systemic inflammatory response syndrome (SIRS) of non-infectious origin without acute organ dysfunction; L03.115 Cellulitis of right lower limb; E11.21 Type 2 diabetes mellitus with diabetic nephropathy; L89.899 Pressure ulcer of other site, unspecified stage; I87.2 Venous insufficiency (chronic) (peripheral); B36.9 Superficial mycosis, unspecified; I11.0 Hypertensive heart disease with heart failure; E66.01 Morbid (severe) obesity due to excess calories; L30.9 Dermatitis, unspecified; J44.9 Chronic obstructive pulmonary disease, unspecified; E11.65 Type 2 diabetes mellitus with hyperglycemia; I50.9 Heart failure, unspecified; I25.10 Atherosclerotic heart disease of native coronary artery without angina pectoris; I25.2 Old myocardial infarction; Z88.2 Allergy status to sulfonamides; Z88.8 Allergy status to other drugs, medicaments and biological substances; Z79.4 Long term (current) use of insulin; Z90.49 Acquired absence of other specified parts of digestive tract
CPT/HCPCS: 36415-UA; 71045-TC; 80053-TC; 81001-TC; 82948-90; 83605; 83880-TC; 84484-TC; 85007-TC; 85025-TC; 85027-TC; 93005; 94640; 94760; J0696; J1815; J7030; J7613; Z7610